=== PATIENT | female | born 1940 | race Caucasian/White ===

== ENCOUNTER 2017-01-03 15:00 | Emergency (ER) | payer OTHER ==
[~2017-01-03] VITALS: Ht 162.6 cm; Wt 71.0 kg
[~2017-01-03 15:00] MED LIST: ADVAIR 250/501 DISK IH; ADVAIR 500-501 EACH IH; ADVAIR HFA120 INHAL1 IH; ADVAIR HFA120 INHALA IH; ADVIL PM1 TABLET PO; AMBIEN5 MG PO; AMITRIPTYLINE H50 MG PO; AMITRIPTYLINE100 MG PO; ASPIR-TRIN325 M1 PO; ASPIRIN E.C.81 M1 PO; ASPIRIN81 M1 PO; Advair HFA 115/21 IH; Amoxicillin PO; Ascorbic Acid,Ester- PO; B-121000 MC2 PO; CALCIUM 600 +1 EAC1 PO; CALCIUM 600 +1 EAC3 PO; CALCIUM 600 +1 EAC4 PO; CARVEDILOL12.5 MG PO; CARVEDILOL25 MG PO; CEFTIN500 MG PO; CENTRUM SILVER1 EAC3 PO; CLONAZEPAM1 MG PO; COLACE100 MG PO; COMBIVENT RESPIM4 GM IH; COREG12.5 M1 PO; COREG12.5 MG PO; COUMADIN,JANTOVE5 MG PO; Coreg PO; DIOVAN80 MG PO; DOCUSATE SODIU100 MG PO; DOK PLUS TABLE1 EACH PO; DULCOLAX5 MG PO; DUONEB 2.5-0.5 M3 ML AEROSOL; DUONEB3 ML IH; Deltasone PO; ELAVIL100 MG PO; ERGOCALCIF50000 UNIT PO; ESOMEPRAZOLE MA40 MG PO; Elavil PO; FERROUS SULFAT325 MG PO; FLOVENT DISKUS1 DIS2 IH; FOSAMAX70 MG PO; HEPARIN SO5000 UNITS SC; HYDROCODON-ACE1 EAC9 PO; IBUPROFEN600 MG PO; IBUPROFEN800 MG PO; IRON PO; IRON18 MG PO; K-DUR10 ME2 PO; KETOCONAZOLE60 GM TP; KLONOPIN1 MG PO; KLOR-CON20 MEQ PO; LANSOPRAZOLE30 MG PO; LEVOFLOXACIN750 MG PO; LIDODERM 5% P1 PATCH TD; LOSARTAN POTASS50 MG PO; LOVENOX40 MG/0.4 SC; MOTRIN800 MG PO; MUCINEX600 MG PO; MULTIVITAMIN1 EAC2 PO; MULTIVITAMIN1 EACH PO; Maalox, Mylanta PO; Milk Of Magnesia,MOM PO; NEURONTIN300 MG PO; NEXIUM40 MG PO; NITROSTAT,NITR0.4 M1 SL; NIZORAL 2% CREA15 GM TP; NORVASC5 MG PO; ONDANSETRON4 MG/2 ML IV; Oyst-Cal D, Oscal W/ PO; PERCOCET 5/31 TABLET PO; POLYETHYLENE GL17 GM PO; POTASSIUM CHLO20 ME1 PO; POTASSIUM GLUCO2 MEQ PO; POTASSIUM GLUCO99 M1 PO; PREDNISONE10 MG PO; PREVACID30 MG PO; PROAIR HFA8.5 GM IH; PROTONIX40 MG PO; PROVENTIL,2.5 MG/0.5 AEROSOL; ROBITUSSIN AC,T10 ML PO; Remeron PO; SENOKOT S,PE1 TABLET PO; SPIRIVA RESPIMAT4 GM IH; SPIRIVA1 INHALATI IH; THERAGRAN1 TABLET PO; TRAMADOL HCL50 MG PO; TYLENOL EXTRA500 MG PO; TYLENOL REGULA325 MG PO; Theragran-M,Centrum, PO; Tylenol Regular Stre PO; ULTRAM50 MG PO; VENTOLIN HFA18 GM IH; VICODIN 5-5001 EACH PO; VICODIN,LORT1 TABLET PO; VITAMIN B122500 MCG PO; Vicodin,Lortab 5/500 PO; XANAX0.25 MG PO; ZANAFLEX2 MG PO; ZITHROMAX250 MG PO
[2017-01-03] MEDS ORDERED: VICODIN HP 10-1 EACH PO (16:45)
[2017-01-03] MEDS ORDERED: AMBIEN10 MG PO (16:45)
[2017-01-03] MEDS ORDERED: TRAZODONE HCL50 MG PO (16:46)
[2017-01-03 20:00] VITALS: BP 177/100
== END 2017-01-03 20:01 | disposition home or self-care (01) ==
LOC: EME 15:00
DX: S42.212A Unspecified displaced fracture of surgical neck of left humerus, initial encounter for closed fracture (principal); W18.30XA Fall on same level, unspecified, initial encounter; Y92.000 Kitchen of unspecified non-institutional (private) residence as the place of occurrence of the external cause; K21.9 Gastro-esophageal reflux disease without esophagitis; I10 Essential (primary) hypertension; J44.9 Chronic obstructive pulmonary disease, unspecified; Z90.49 Acquired absence of other specified parts of digestive tract; Z87.891 Personal history of nicotine dependence
CPT/HCPCS: 73030; 99281; 99284

== ENCOUNTER 2017-05-14 18:34 | Inpatient (IN) | payer OTHER ==
[~2017-05-14] VITALS: Ht 160 cm; Wt 74.0 kg
[~2017-05-14 18:34] MED LIST changes: +AMBIEN10 MG PO; -B-121000 MC2 PO; +TRAZODONE HCL50 MG PO
[2017-05-14 19:54] LABS: CHLORIDE 101 mEq/L (99-109); SODIUM 138 mEq/L (136-147)
[2017-05-14 19:56] LABS: GLUCOSE 124 mg/dL (70-99)
[2017-05-14 19:58] LABS: ANION GAP 16 MEQ/L (2-14); TOTAL BILIRUBIN 0.4 mg/dL (0.0-1.0)
[2017-05-14 20:00] LABS: ALKALINE PHOSPHATASE 169 IU/L (3-129); GFR ESTIMATE (CALCULATED) 31 mL/min/
[2017-05-14 20:01] LABS: UREA NITROGEN (BUN) 26 mg/dL (9-23)
[2017-05-14 20:06] LABS: ADD MIUA? YES; BILIRUBIN NEGATIVE; BLOOD SMALL; COLOR YELLOW ((YELLOW)); GLUCOSE (STRIP) NEGATIVE; KETONES NEGATIVE; LEUKOCYTES LARGE; NITRITE NEGATIVE; PROTEIN (STRIP) 30; SPECIFIC GRAVITY 1.011 (1.000-1.030)
[2017-05-14 20:09] LABS: BACTERIA RARE /HPF; CALCIUM OXALATE CRYSTALS 2+ /HPF; EPITHELIAL CELLS RARE /HPF; HYALINE CASTS 0-5 /LPF; MUCUS NONE SEEN /LPF; RED BLOOD CELLS 0-5 /HPF (0-5); UCUL ADDED? YES; WHITE BLOOD CELLS 20-30 /HPF (0-5)
[2017-05-14 20:13] LABS: HEMATOCRIT 30.6 % (36.0-46.0); MCH 30.4 PG (29.0-34.0); MCHC 33.3 G/DL (30.0-36.0); MCV 91.3 FL (83-99); PLATELET COUNT 232 K/uL (156-360); RBC DIS.WIDTH-CV 13.6 % (11.8-14.6); RBC DIS.WIDTH-SD 45.6 % (39-53); RED BLOOD COUNT 3.35 M/uL (3.80-5.20); WHITE BLOOD COUNT 12.6 K/uL (4.1-10.2)
[2017-05-14 20:55] LABS: BASOPHIL COUNT 0.1 K/uL (0-0.1); EOSINOPHIL (%) 1.5 % (0-5); EOSINOPHIL COUNT 0.2 K/uL (0-0.3); IMMATURE GRANULOCYTE (%) 0.7 % (0.0-0.7); IMMATURE GRANULOCYTE COUNT 0.1 K/uL; INSTRUMENT ABS NEUTROPHIL CT 7.4 K/uL; LYMPHOCYTE COUNT 2.2 K/uL (1.0-2.8); MONOCYTE (%) 21.5 % (3-12); MONOCYTE COUNT 2.7 K/uL (0-0.8); NEUTROPHIL (%) 58.6 % (45-76); NEUTROPHIL COUNT 7.4 K/uL (1.8-6.4)
[2017-05-15] VITALS (9 sets, daily range): BP systolic 112–158; BP diastolic 56–87
[2017-05-15 00:17] LABS: TROP-I INTERPRETATION NEGATIVE; TROPONIN-I < 0.01 ng/mL (0.0-0.30)
[2017-05-15 06:33] LABS: TROP-I INTERPRETATION NEGATIVE; TROPONIN-I < 0.01 ng/mL (0.0-0.30)
[2017-05-15 07:24] LABS: CHLORIDE 110 MEQ/L (99-109); GLUCOSE 163 mg/dL (70-99); SAMPLE HEMOLYSIS CHECK 0; SAMPLE ICTERIC CHECK 0; SAMPLE LIPEMIA CHECK 0; SODIUM 144 MEQ/L (136-147); UREA NITROGEN (BUN) 23 mg/dL (9-23)
[2017-05-15 07:25] LABS: POTASSIUM 4.2 MEQ/L (3.7-5.4)
[2017-05-15 08:19] LABS: GFR ESTIMATE (CALCULATED) 43 mL/min/; MAGNESIUM 1.6 mg/dl (1.3-2.7)
[2017-05-15 08:23] LABS: ANION GAP 14 MEQ/L (2-14)
[2017-05-15 09:56] LABS: IRON 25 MCG/DL (35-150)
[2017-05-15 10:07] LABS: FERRITIN 1345 NG/ML (10-291)
[2017-05-15 12:17] LABS: TROP-I INTERPRETATION NEGATIVE; TROPONIN-I < 0.01 ng/mL (0.0-0.30)
[2017-05-16] VITALS (8 sets, daily range): BP systolic 140–187; BP diastolic 65–89
[2017-05-16 05:26] LABS: HEMATOCRIT 27.4 % (36.0-46.0); MCH 29.6 PG (29.0-34.0); MCHC 32.1 G/DL (30.0-36.0); MCV 92.3 FL (83-99); PLATELET COUNT 254 K/uL (156-360); RBC DIS.WIDTH-CV 14.3 % (11.8-14.6); RBC DIS.WIDTH-SD 47.8 % (39-53); RED BLOOD COUNT 2.97 M/uL (3.80-5.20); WHITE BLOOD COUNT 14.7 K/uL (4.1-10.2)
[2017-05-16 06:05] LABS: ANION GAP 12 MEQ/L (2-14); CHLORIDE 113 MEQ/L (99-109); GFR ESTIMATE (CALCULATED) 52 mL/min/; GLUCOSE 133 mg/dL (70-99); MAGNESIUM 1.6 mg/dl (1.3-2.7); POTASSIUM 3.4 MEQ/L (3.7-5.4); SAMPLE HEMOLYSIS CHECK 0; SAMPLE ICTERIC CHECK 0; SAMPLE LIPEMIA CHECK 0; SODIUM 144 MEQ/L (136-147); UREA NITROGEN (BUN) 26 mg/dL (9-23)
[2017-05-16] MEDS ORDERED: TRAZODONE HCL50 MG PO (21:11)
[2017-05-16] MEDS ORDERED: AMBIEN10 MG PO (21:12)
[2017-05-16] MEDS ORDERED: COZAAR50 MG PO (21:12)
[2017-05-16] MEDS ORDERED: COREG12.5 M1 PO (21:13)
[2017-05-16] MEDS ORDERED: NEXIUM40 MG PO (21:14)
[2017-05-16] MEDS ORDERED: CYCLOBENZAPRINE5 MG PO (21:16)
[2017-05-16] MEDS ORDERED: SPIRIVA18 MCG IH (21:17)
[2017-05-17 03:14] VITALS: BP 151/68
[2017-05-17 07:18] VITALS: BP 144/65
[2017-05-17 12:20] VITALS: BP 137/74
[2017-05-17] MEDS ORDERED: VITAMIN D31000 UNI2 PO (15:44)
[2017-05-17] MEDS ORDERED: PROAIR HFA8.5 GM IH (15:44)
[2017-05-17] MEDS ORDERED: CALCIUM 600 +1 EAC4 PO (15:44)
[2017-05-17] MEDS ORDERED: B-121000 MC2 PO (15:44)
[2017-05-17] MEDS ORDERED: NORCO 10/3251 TABLET PO (15:45)
[2017-05-17 16:02] VITALS: BP 141/73
[2017-05-17 19:30] VITALS: BP 144/69
[2017-05-18] VITALS: BP 146/70
[2017-05-18 03:50] VITALS: BP 148/72
[2017-05-18 08:37] VITALS: BP 164/77
[2017-05-18 09:47] LABS: HEMATOCRIT 31.7 % (36.0-46.0); MCH 29.8 PG (29.0-34.0); MCHC 31.9 G/DL (30.0-36.0); MCV 93.5 FL (83-99); MEAN PLAT.VOLUME 9.7 uM^3 (9.5-12.4); NRBC (%) 0.1 /100 WBC (0-0); PLATELET COUNT 280 K/uL (156-360); RBC DIS.WIDTH-CV 14.6 % (11.8-14.6); RBC DIS.WIDTH-SD 49.9 % (39-53); RED BLOOD COUNT 3.39 M/uL (3.80-5.20); WHITE BLOOD COUNT 13.7 K/uL (4.1-10.2)
[2017-05-18 10:13] LABS: ANION GAP 8 MEQ/L (2-14); CHLORIDE 109 MEQ/L (99-109); GFR ESTIMATE (CALCULATED) > 59 mL/min/; GLUCOSE 151 mg/dL (70-99); POTASSIUM 3.8 MEQ/L (3.7-5.4); SAMPLE HEMOLYSIS CHECK 0; SAMPLE ICTERIC CHECK 0; SAMPLE LIPEMIA CHECK 0; SODIUM 141 MEQ/L (136-147); UREA NITROGEN (BUN) 31 mg/dL (9-23)
[2017-05-18] MEDS ORDERED: SERTRALINE HCL25 MG PO (10:54)
[2017-05-18] MEDS ORDERED: ADVAIR HFA120 INHALA IH (10:55)
[2017-05-18] MEDS ORDERED: PREDNISONE10 MG PO (11:00)
[2017-05-18] MEDS ORDERED: ZOLPIDEM TARTRAT5 MG PO (11:00)
== END 2017-05-18 13:55 | disposition home or self-care (01) | DRG 190 ==
LOC: EME 18:34 → EDOF 23:02 → ENRESERV 23:29 → 5WEST 05-15 00:14 → ENPENDDIS 05-18 → 5WEST 05-18 13:55
PROVIDERS: Emergency Medicine; Internal Medicine; Nurse Practitioner Adult Health; Physician Assistant
DX: J44.0 Chronic obstructive pulmonary disease with (acute) lower respiratory infection (principal); J18.9 Pneumonia, unspecified organism; J44.1 Chronic obstructive pulmonary disease with (acute) exacerbation; N30.00 Acute cystitis without hematuria; F32.9 Major depressive disorder, single episode, unspecified; K21.9 Gastro-esophageal reflux disease without esophagitis; I27.20 Pulmonary hypertension, unspecified; I35.0 Nonrheumatic aortic (valve) stenosis; G47.00 Insomnia, unspecified; Z96.641 Presence of right artificial hip joint; E86.0 Dehydration; D64.9 Anemia, unspecified; E87.6 Hypokalemia; I11.0 Hypertensive heart disease with heart failure; J32.0 Chronic maxillary sinusitis; Z87.891 Personal history of nicotine dependence; N28.9 Disorder of kidney and ureter, unspecified; R09.02 Hypoxemia; F41.9 Anxiety disorder, unspecified; G43.909 Migraine, unspecified, not intractable, without status migrainosus; I50.9 Heart failure, unspecified
CPT/HCPCS: 70450; 71020; 80048; 80053; 81003; 82272; 82607; 82728; 82747 90; 83540; 83605; 83735; 83880; 84466; 84484; 85025; 85027; 87086; 93005; 94010; 94640; 94640 76; 94760; 94799; 99202; 99281; 99285; G0378; G8987 GO CJ; G8988 CI; J0456; J0696; J1650; J1885; J2920; J2930; J7030; J7040; J7512

== ENCOUNTER 2017-12-04 10:48 | Emergency (ER) | payer OTHER ==
[~2017-12-04] VITALS: Ht 160 cm; Wt 65.1 kg
[~2017-12-04 10:48] MED LIST changes: +B-121000 MC2 PO; +COZAAR50 MG PO; +CYCLOBENZAPRINE5 MG PO; +NORCO 10/3251 TABLET PO; +SERTRALINE HCL25 MG PO; +SPIRIVA18 MCG IH; +VITAMIN D31000 UNI2 PO; +ZOLPIDEM TARTRAT5 MG PO
[2017-12-04] MEDS ORDERED: ASPIR 8181 M1 PO (11:35)
[2017-12-04] MEDS ORDERED: TRAZODONE HCL50 MG PO (11:36)
[2017-12-04 11:38] LABS: HEMOGLOBIN 11.4 G/DL (11.9-15.5); MCH 31.1 PG (29.0-34.0); MCHC 32.6 G/DL (30.0-36.0); MCV 95.4 FL (83-99); PLATELET COUNT 190 K/uL (156-360); RED BLOOD COUNT 3.67 M/uL (3.80-5.20); WHITE BLOOD COUNT 11.2 K/uL (4.1-10.2)
[2017-12-04] MEDS ORDERED: IRON18 MG PO (11:38)
[2017-12-04 11:49] LABS: CHLORIDE 104 mEq/L (99-109); POTASSIUM 5.2 mEq/L (3.7-5.4); SODIUM 137 mEq/L (136-147)
[2017-12-04 11:51] LABS: GLUCOSE 101 mg/dL (70-99)
[2017-12-04 11:55] LABS: CREATININE 1.3 mg/dL (0.6-1.3); GFR ESTIMATE (CALCULATED) 42 mL/min/
[2017-12-04 11:56] LABS: UREA NITROGEN (BUN) 26 mg/dL (9-23)
[2017-12-04] MEDS ORDERED: ARTIFICIAL TEA3.5 G1 RIGHT EYE (14:00)
[2017-12-04] MEDS ORDERED: PREDNISONE20 MG PO (14:00)
[2017-12-04] MEDS ORDERED: VALTREX1000 MG PO (14:00)
[2017-12-04 14:14] VITALS: BP 105/58
== END 2017-12-04 14:17 | disposition home or self-care (01) ==
LOC: EME 10:48
DX: G51.0 Bell's palsy (principal); R42 Dizziness and giddiness; R51 Headache; J44.9 Chronic obstructive pulmonary disease, unspecified; I10 Essential (primary) hypertension; Z90.710 Acquired absence of both cervix and uterus; Z90.49 Acquired absence of other specified parts of digestive tract; Z79.82 Long term (current) use of aspirin; Z87.891 Personal history of nicotine dependence
CPT/HCPCS: 70450; 70551; 71046; 80048; 85027; 93005; 99281; 99284